=== PATIENT | male | born 1965 | race Asian ===

== ENCOUNTER 2018-09-27 12:11 | Emergency (ER) | payer MEDICAID ==
[~2018-09-27] VITALS: Ht 160 cm; Wt 80.7 kg
--- NOTE | 2018-09-27 12:28 | NUR ---
ED Nurse Note: PT FROM HOME CAME IN DUE TO RIGHT KNEE AND LOWER LEG SWELLING. PT STATES HE HAD A LEG SURGERY 3 WEEKS AGO ABD AFTER THAT, HIS LEGS STARTED TO SWELL. DENIES FEVER. PT IS AAO X4 AMBULATORY WITH NON LABORED BREATHING. NOTED RLE SWELLING WITH PITTING EDEMA AND WITH MILD REDNESS.
--- NOTE | 2018-09-27 12:36 | NUR ---
HAND-OFF: Report given to GRETA MONSON RN.
--- NOTE | 2018-09-27 12:43 | Emergency Room Report ---
History of Present Illness General Chief Complaint: Edema Source: Patient Present Illness HPI Patient presents to the emergency department today complaining of right knee pain. Patient had recent meniscal surgery performed arthroscopically at a facility in the [place]. Patient states that in the last few days his right lower extreme he has become more painful and swollen. He denies any chest pain or shortness of breath. This is never happened before. He does not have a history of DVT. Symptoms noted to be moderate to severe. No other modifying factors. No other associated signs and symptoms. No other complaints were noted. Allergies: Coded Allergies: No Known Allergies (Unverified , 09/27/18) Patient History Past Medical History: other - Right knee surgery Past Surgical History: other - Right knee surgery Social History: Denies: smoking, alcohol use, drug use Reviewed Nursing Documentation: PMH: Agreed; PSxH: Agreed Nursing Documentation-PMH Past Medical History: No History, Except For Review of Systems All Other Systems: negative except mentioned in HPI Physical Exam Vital Signs Date Time Temp Pulse Resp B/P (MAP) Pulse Ox O2 Delivery O2 Flow Rate FiO2 09/27/18 12:18 97.9 65 21 111/72 (85) 97 Room Air Sp02 EP Interpretation: reviewed, normal General Appearance: normal inspection, well appearing, no apparent distress, alert Head: atraumatic Eyes: bilateral eye normal inspection ENT: normal ENT inspection, hearing grossly normal, normal voice Neck: normal inspection, full range of motion, supple, no bony tend Respiratory: normal inspection, lungs clear, normal breath sounds, no respiratory distress, no retraction, no wheezing Cardiovascular #1: regular rate, rhythm, no edema Gastrointestinal: normal inspection, normal bowel sounds, non tender, soft, no guarding, no hernia Genitourinary: no CVA tenderness Musculoskeletal: swelling - 3+ right lower extremity., other - Right knee has healed incision from prior arthroscopic Neurologic: normal inspection, alert, responsive, speech normal Psychiatric: normal inspection, judgement/insight normal, mood/affect normal Skin: normal inspection, normal color, no rash Medical Decision Making Diagnostic Impression: Primary Impression: Edema Qualified Codes: R60.9 - Edema, unspecified Additional Impression: Peripheral edema ER Course Patient presents to the emergency department today complaining of right lower extremity edema. Differential diagnosis include DVT, peripheral edema, cellulitis, postsurgical changes just name a few. Patient's exam is concerning for DVT given the amount of swelling. Ultrasound was performed as well as laboratory work-up. Ultrasound and laboratory work-up are negative there is no evidence of a DVT. Given that the ultrasound was negative I recommend outpatient follow-up. Symptoms are likely secondary to postsurgical changes and peripheral edema. Recommend elevate the leg. Patient is advised to follow up with primary doctor in 2-3 days and return the emergency room for any worsening symptoms and as needed. Labs Test 09/27/18 12:42 White Blood Count 7.1 K/UL (4.8-10.8) Red Blood Count 4.46 M/UL (4.70-6.10) Hemoglobin 14.3 G/DL (14.2-18.0) Hematocrit 41.1 % (42.0-52.0) Mean Corpuscular Volume 92 FL (80-99) Mean Corpuscular Hemoglobin 32.1 PG (27.0-31.0) Mean Corpuscular Hemoglobin Concent 34.8 G/DL (32.0-36.0) Red Cell Distribution Width 11.8 % (11.6-14.8) Platelet Count 212 K/UL (150-450) Mean Platelet Volume 6.3 FL (6.5-10.1) Neutrophils (%) (Auto) 67.5 % (45.0-75.0) Lymphocytes (%) (Auto) 26.2 % (20.0-45.0) Monocytes (%) (Auto) 4.9 % (1.0-10.0) Eosinophils (%) (Auto) 0.3 % (0.0-3.0) Basophils (%) (Auto) 1.1 % (0.0-2.0) Prothrombin Time 10.4 SEC (9.30-11.50) Prothromb Time International Ratio 1.0 (0.9-1.1) Activated Partial Thromboplast Time 26 SEC (23-33) Sodium Level 140 MMOL/L (136-145) Potassium Level 4.2 MMOL/L (3.5-5.1) Chloride Level 103 MMOL/L (98-107) Carbon Dioxide Level 30 MMOL/L (21-32) Anion Gap 7 mmol/L (5-15) Blood Urea Nitrogen 11 mg/dL (7-18) Creatinine 0.9 MG/DL (0.55-1.30) Estimat Glomerular Filtration Rate > 60 mL/min (>60) Glucose Level 96 MG/DL (74-106) Calcium Level 9.1 MG/DL (8.5-10.1) Total Bilirubin 0.5 MG/DL (0.2-1.0) Aspartate Amino Transf (AST/SGOT) 23 U/L (15-37) Alanine Aminotransferase (ALT/SGPT) 44 U/L (12-78) Alkaline Phosphatase 88 U/L (46-116) Total Protein 7.2 G/DL (6.4-8.2) Albumin 3.8 G/DL (3.4-5.0) Globulin 3.4 g/dL Albumin/Globulin Ratio 1.1 (1.0-2.7) CT/MRI/US Diagnostic Results CT/MRI/US Diagnostic Results : Imaging Test Ordered: Venous ultrasound: right lower extremity negative for DVT Last Vital Signs Date Time Temp Pulse Resp B/P (MAP) Pulse Ox O2 Delivery O2 Flow Rate FiO2 09/27/18 12:25 65 21 Room Air 09/27/18 12:18 97.9 111/72 (85) 97 Status: unchanged Disposition: HOME, SELF-CARE Condition: Stable Rony Mejia MD September 27, 2018 12:43
[2018-09-27 12:50] VITALS: BP 105/65
[2018-09-27 13:01] LABS: BASOPHILS % (AUTO) 1.1 % (0.0-2.0); EOSINOPHILS % (AUTO) 0.3 % (0.0-3.0); HEMATOCRIT 41.1 % (42.0-52.0); HEMOGLOBIN 14.3 G/DL (14.2-18.0); LYMPHOCYTES % (AUTO) 26.2 % (20.0-45.0); MEAN CORPUSCULAR VOLUME 92 FL (80-99); MONOCYTES % (AUTO) 4.9 % (1.0-10.0); NEUTROPHILS % (AUTO) 67.5 % (45.0-75.0); PLATELET COUNT 212 K/UL (150-450); RED BLOOD COUNT 4.46 M/UL (4.70-6.10); RED CELL DISTRIBUTION WIDTH 11.8 % (11.6-14.8); WHITE BLOOD COUNT 7.1 K/UL (4.8-10.8)
[2018-09-27 13:03] LABS: ANION GAP 7 mmol/L (5-15); BLOOD UREA NITROGEN 11 mg/dL (7-18); CALCIUM 9.1 MG/DL (8.5-10.1); CARBON DIOXIDE 30 MMOL/L (21-32); CHLORIDE 103 MMOL/L (98-107); CREATININE 0.9 MG/DL (0.55-1.30); POTASSIUM 4.2 MMOL/L (3.5-5.1); SODIUM 140 MMOL/L (136-145)
[2018-09-27 13:08] LABS: ALANINE AMINOTRANSFERASE 44 U/L (12-78); ALBUMIN 3.8 G/DL (3.4-5.0); ALBUMIN/GLOBULIN RATIO 1.1 (1.0-2.7); ALKALINE PHOSPHATASE 88 U/L (46-116); ASPARTATE AMINO TRANSFERASE 23 U/L (15-37); BILIRUBIN,TOTAL 0.5 MG/DL (0.2-1.0)
--- NOTE | 2018-09-27 13:35 | NUR ---
ED Nurse Note: US at bedside.
--- NOTE | 2018-09-27 14:25 | NUR ---
ER DISCHARGE NOTE: Patient is cleared to be discharged per ERMD, pt is aox4, on room air, with stable vital signs. pt was given dc instructions, pt was able to verbalize understanding, pt id band and iv site removed without complications. pt is able to ambulate with steady gait with crutches. pt took all belongings.
--- NOTE | 2018-09-27 14:40 | Diagnostic Imaging Report ---
Indication: Right leg pain Technique: Grayscale and duplex images of the right lower extremity veins Comparison: none Findings: Grayscale and duplex images demonstrate no evidence of intraluminal thrombus. Normal phasic Doppler waveforms, demonstrating normal phasicity and augmentation response. No evidence of valvular insufficiency. Normal compressibility. Impression: Negative for evidence of right lower extremity deep venous thrombosis
== END 2018-09-27 14:30 | disposition home or self-care (01) ==
LOC: EMR 14:01
DX: R60.0 Localized edema (principal); M25.561 Pain in right knee; Z98.890 Other specified postprocedural states
CPT/HCPCS: 36415; 80053; 85025; 85610; 85730; 93971; 99284